=== PATIENT | female | born 1985 ===

== ENCOUNTER 2023-07-16 15:19 | Outpatient (CLI) | payer BC, SELFPAY ==
[2023-07-20 07:27] LABS: FSH 10.2 mIU/mL (***)
[2023-07-20 12:30] LABS: Testosterone Total 16 ng/dL (2-45)
[2023-07-23 00:46] LABS: Estradiol, Ultrasensitive 65 pg/mL
== END 2023-07-16 15:20 | disposition home or self-care (01) ==
LOC: ANHGOSHLAB 15:21
PROVIDERS: Visit Provider Student in an Organized Health Care Education/Training Program
DX: N92.6 Irregular menstruation, unspecified (principal)
CPT/HCPCS: 36415; 82670; 83001; 84403; 84443